=== PATIENT | female | born 1990 | race African-American/Black ===

== ENCOUNTER → 2016-08-21 | Outpatient (CLI) | payer OTHER ==
[~2016-08-21] MED LIST: FERR325T; KEFL500C; MOTR200T4
[2016-08-21 11:42] LABS: BASO % 0.3 % (0.0-1.0); EOS # 0.2 K/mm3 (0.0-0.50); EOS % 2.4 % (0.0-3.0); LARGE UNSTAINED CELL # 0.2 K/mm3 (0.0-0.4); LARGE UNSTAINED CELL % 2.2 % (0.0-4.0); LYMPH # 1.3 K/mm3 (1.5-6.5); LYMPH % 13.5 % (24.0-44.0); MEAN CORPUSCULAR HGB CONC 32.8 g/dl (32.0-36.5); MEAN CORPUSCULAR VOLUME 88.4 fl (80.0-96.0); MONO # 0.3 K/mm3 (0.0-0.8); MONO % 3.2 % (0.0-5.0); NEUTROPHILS # 7.3 K/mm3 (1.8-7.7); NEUTROPHILS % 78.3 % (36.0-66.0); PLATELET COUNT, AUTOMATED 256 k/mm3 (150-450); WHITE BLOOD COUNT 9.4 K/mm3 (4.0-10.0)
== END ==
LOC: M LAB 10:04
PROVIDERS: ATTEND Obstetrics & Gynecology
DX: Z36 Encounter for antenatal screening of mother (principal)

== ENCOUNTER → 2016-08-24 | Outpatient (CLI) | payer OTHER ==
--- NOTE | 2016-08-25 03:28 | REP ---
Clinical: Anatomical evaluation. Comparison: 07/21/2016 . Findings: Examination demonstrates a single live intrauterine in breech presentation. motion is identified by technologist. Placenta is noted posterior fundally and grade zero without evidence for placenta previa or abruption. Amniotic fluid volume is normal. Cervix measures 4.5 cm in length and appears closed. No evidence for nuchal cord. Gestational age by LMP 25 weeks 0-day with TUYET 12/07/2016 . Gestational age by current measurements 25 weeks 3-day with TUYET 12/04/2016 . FHR equals 136 beats per minute. BPD 6.3 cm 25 weeks 4 days HC 24.3 cm 26 weeks 3 day AC 22.2 cm 26 weeks 5 days FL 4.4 cm 24 weeks 2 days HL 4.0 cm 24 weeks 2 days HC/AC ratio 1.09 Estimated weight 845 grams ( 64 percentile). Anatomical assessment demonstrates normal structures including cranium, choroid plexus, cavum, cerebellum/posterior fossa, facial features, lungs, four-chamber heart/ventricular outflow tracts, diaphragm, stomach, cord insertion/three-vessel cord, kidneys/bladder, and extremities. Limited evaluation of the sacral spine is due to positioning, and the remainder of the spinal images appear normal. Echogenic focus within the left cardiac ventricle consistent with chordae tendineae. Impression: Single live intrauterine in breech presentation demonstrating appropriate interval growth. Signed by Eloy Evans MD 08/25/2016 03:20 A
== END ==
LOC: M RAD 15:24
PROVIDERS: ATTEND Advanced Practice Midwife
DX: Z36 Encounter for antenatal screening of mother (principal); Z3A.25 25 weeks gestation of pregnancy

== ENCOUNTER 2016-09-04 18:02 | Outpatient (CLI) | payer OTHER ==
[~2016-09-04] VITALS: Ht 160 cm; Wt 56.0 kg
[2016-09-04] MEDS ORDERED: PRENTAB9 PO (18:32)
[2016-09-04] MEDS ORDERED: RANITAB PO (18:32)
== END 2016-09-04 20:40 | disposition home or self-care (01) ==
LOC: M LDO 18:02
PROVIDERS: ATTEND Obstetrics & Gynecology
DX: O26.892 Other specified pregnancy related conditions, second trimester (principal); R05 Cough; R10.10 Upper abdominal pain, unspecified; Z3A.26 26 weeks gestation of pregnancy

== ENCOUNTER 2016-10-04 19:18 | Inpatient (IN) | payer OTHER ==
[2016-10-04] VITALS (13 sets, daily range): BP systolic 110–143; BP diastolic 58–80
[~2016-10-04] VITALS: Ht 160 cm; Wt 61.0 kg
[~2016-10-04 19:18] MED LIST changes: +PRENTAB9 PO; +RANITAB PO
[2016-10-04] MEDS ORDERED: FERR325T3 PO (19:25)
[2016-10-04] MEDS ORDERED: MAG Sulf (OBGYN) 20GM/500ML 20,000 MG in APPROPRIATE DILUENT 1 EA IV SCH (20:18)
[2016-10-04] MEDS: LR 1,000 ML IV SCH (20:24)
[2016-10-04] MEDS ORDERED: MAG Sulf (L&D) 4 GM/100 ML 4 GM in APPROPRIATE DILUENT 1 EA IV ONE (20:30)
[2016-10-04] MEDS ORDERED: AZITHROMYCIN 250 MG TAB PO ONE (20:30)
[2016-10-04 20:56] LABS: MEAN CORPUSCULAR HEMOGLOBIN 29.4 pg (27.0-33.0); MEAN CORPUSCULAR HGB CONC 33.9 g/dl (32.0-36.5); MEAN CORPUSCULAR VOLUME 86.7 fl (80.0-96.0); RED CELL DISTRIBUTION WIDTH 13.7 % (11.5-14.5); WHITE BLOOD COUNT 11.8 K/mm3 (4.0-10.0)
[2016-10-04] MEDS: BETAMETHASONE SOLUSPAN 6MG/ML INJ 5ML (J0702) IM SCH (20:56)
[2016-10-04] MEDS: AMPICILLIN SOD 2 GM in D5W MINI-BAG PLUS 100 ML IV SCH (20:57)
[2016-10-05] VITALS (24 sets, daily range): BP systolic 100–131; BP diastolic 55–74
[2016-10-05] MEDS: AMPICILLIN SOD 2 GM in D5W MINI-BAG PLUS 100 ML IV SCH ×4 (02:45→20:48)
[2016-10-05] MEDS: LR 1,000 ML IV SCH (08:43)
[2016-10-05] MEDS: BETAMETHASONE SOLUSPAN 6MG/ML INJ 5ML (J0702) IM SCH (20:48)
[2016-10-06] MEDS: AMPICILLIN SOD 2 GM in D5W MINI-BAG PLUS 100 ML IV SCH ×4 (02:59→20:55)
[2016-10-06 03:06] VITALS: BP 105/54
[2016-10-06 08:00] VITALS: BP 113/56
[2016-10-06 12:00] VITALS: BP 110/61
[2016-10-06 15:00] VITALS: BP 110/59
[2016-10-06 18:08] VITALS: BP 115/62
[2016-10-06 22:00] VITALS: BP 114/56
[2016-10-07] MEDS: AMPICILLIN SOD 2 GM in D5W MINI-BAG PLUS 100 ML IV SCH ×4 (02:01→20:47)
[2016-10-07 02:08] VITALS: BP 104/52
[2016-10-07 06:24] VITALS: BP 108/59
[2016-10-07 10:00] VITALS: BP 119/69
[2016-10-07] MEDS: DOCUSATE SODIUM 100 MG CAP PO SCH ×2 (11:08→20:46)
[2016-10-07 14:03] VITALS: BP 114/57
[2016-10-07 18:00] VITALS: BP 117/59
[2016-10-07 22:00] VITALS: BP 111/63
[2016-10-08] MEDS: AMPICILLIN SOD 2 GM in D5W MINI-BAG PLUS 100 ML IV SCH ×4 (01:57→20:30)
[2016-10-08 02:00] VITALS: BP 97/49
[2016-10-08 05:52] VITALS: BP 106/57
[2016-10-08] MEDS: DOCUSATE SODIUM 100 MG CAP PO SCH ×2 (08:44→21:00)
[2016-10-08 10:00] VITALS: BP 123/69
[2016-10-08 13:48] VITALS: BP 115/58
[2016-10-08 18:17] VITALS: BP 127/66
[2016-10-08 22:00] VITALS: BP 128/59
[2016-10-09 02:34] VITALS: BP 116/58
[2016-10-09] MEDS: AMPICILLIN SOD 2 GM in D5W MINI-BAG PLUS 100 ML IV SCH (02:40)
[2016-10-09 05:38] VITALS: BP 100/55
[2016-10-09] MEDS: DOCUSATE SODIUM 100 MG CAP PO SCH ×2 (09:00→20:41)
[2016-10-09] MEDS: PRENATAL VITAMIN TAB PO SCH (09:30)
[2016-10-09] MEDS: AMOXICILLIN 500 MG CAP PO SCH ×2 (09:30→17:20)
[2016-10-09] MEDS ORDERED: SIMETHICONE 80 MG CHEW TAB PO PRN (09:45)
[2016-10-09 10:32] VITALS: BP 111/63
[2016-10-09] MEDS: PANTOPRAZOLE 20 MG TAB PO SCH (10:48)
[2016-10-09 14:00] VITALS: BP 106/55
[2016-10-09 18:11] VITALS: BP 121/68
[2016-10-09 21:44] VITALS: BP 116/73
[2016-10-10] MEDS: AMOXICILLIN 500 MG CAP PO SCH ×3 (01:33→17:14)
[2016-10-10 01:35] VITALS: BP 105/56
[2016-10-10 05:25] VITALS: BP 106/55
[2016-10-10] MEDS: PANTOPRAZOLE 20 MG TAB PO SCH (08:33)
[2016-10-10] MEDS: PRENATAL VITAMIN TAB PO SCH (08:33)
[2016-10-10] MEDS: DOCUSATE SODIUM 100 MG CAP PO SCH ×2 (09:00→21:00)
[2016-10-10 10:00] VITALS: BP_SYST 121; BP_SYST 122; BP_DIAS 66; BP_DIAS 69
--- NOTE | 2016-10-10 12:17 | IPNPDOC ---
Obstetrical Progress Note Date of Service The patient was seen on 10/10/16 at 08:43. Progress Note SUBJECTIVE: Patient reports she is leaking clear fluid. Reports active movement. Denies contractions. Denies any symptoms of infection. OBJECTIVE: NST reactive at 0200. FHR 120, moderate variability, positive accelerations, no decelerations. No contractions noted. PHYSICAL EXAMINATION: Abdomen: Gravid, fundal height 30 cm External extremities: no edema, sequentials present bilaterally Skin: warm and dry. No rashes or lesions present. VITAL SIGNS: Please see below. Labs: Positive GBS. ASSESSMENT: IUP @ 31.4, PPROM, Category I FHR tracing PLAN: Continue PO latency antibiotics for 1 more day. She is day 6 of latency antibiotics. Continue observation. Plan on delivery at 34 weeks gestation. Start GBS prophylaxis as soon as labor pursues. TUYET 12/07/16. VS, I&O, 24H, Fishbone Vital Signs/I&O Vital Signs Date Time Temp Pulse Resp B/P Pulse Ox O2 Delivery O2 Flow Rate FiO2 10/10/16 05:25 97.9 93 16 106/55 99 Room Air Laboratory Data Microbiology Microbiology 10/05/16 Group B Streptococcus Screen (FELICITA) - Final, Complete Strep Agalactiae Group B CHIQUITA MANRIQUE CNM Oct 10, 2016 08:57
[2016-10-10 14:06] VITALS: BP 120/63
[2016-10-10 18:28] VITALS: BP 129/64
[2016-10-10 22:33] VITALS: BP 123/57
[2016-10-11] MEDS: AMOXICILLIN 500 MG CAP PO SCH ×3 (01:51→17:01)
[2016-10-11 01:59] VITALS: BP 105/62
[2016-10-11 06:03] VITALS: BP 104/54
[2016-10-11] MEDS: PRENATAL VITAMIN TAB PO SCH (08:26)
[2016-10-11] MEDS: PANTOPRAZOLE 20 MG TAB PO SCH (08:26)
[2016-10-11] MEDS: DOCUSATE SODIUM 100 MG CAP PO SCH ×2 (09:00→21:00)
[2016-10-11 10:00] VITALS: BP 123/59
--- NOTE | 2016-10-11 12:44 | IPNPDOC ---
Obstetrical Progress Note Date of Service The patient was seen on 10/11/16 at 12:35. Progress Note SUBJECTIVE: Patient reports that she is slightly nauseous today. Denies contractions or vaginal bleeding. Reports active movement and leaking of clear fluid. Voiding without difficulty. TUYET 12/07/16. OBJECTIVE: PHYSICAL EXAMINATION: VITAL SIGNS: Please see below. Abdomen: Soft, nontender to palpation. EXTREMITIES: Bilateral lower legs and feet with no edema. ASSESSMENT: IUP at 31 weeks 5 days gestation, PPROM, +GBS, Category I FHR tracing. PLAN: Continue plan of care with NSTs every 8 hours. Patient instructed to let staff know if she starts laya, leaking fluid that is no longer clear, having other labor s/sx, having decreased movements. Will start GBS prophylaxis if/when labor starts. Patient may use wheelchair today to ride in around hospital with to get out of her room. Patient to finish Day 7 of latency antibiotics. VS, I&O, 24H, Fishbone Vital Signs/I&O Vital Signs Date Time Temp Pulse Resp B/P Pulse Ox O2 Delivery O2 Flow Rate FiO2 10/11/16 10:00 97.1 83 16 123/59 10/10/16 05:25 99 Room Air Laboratory Data Microbiology Microbiology 10/05/16 Group B Streptococcus Screen (FELICITA) - Final, Complete Strep Agalactiae Group B CHIQUITA MANRIQUE CNM Oct 11, 2016 12:44
[2016-10-11 15:09] VITALS: BP 124/65
[2016-10-11 18:15] VITALS: BP 113/67
[2016-10-11 22:09] VITALS: BP 124/70
[2016-10-12] VITALS (7 sets, daily range): BP systolic 107–127; BP diastolic 53–68
[2016-10-12] MEDS: AMOXICILLIN 500 MG CAP PO SCH (01:11)
--- NOTE | 2016-10-12 08:01 | IPNPDOC ---
Obstetrical Progress Note Date of Service The patient was seen on 10/12/16 at 07:56. Progress Note SUBJECTIVE: Patient doing well with no complaints. Reports fluid was clear. Reports active movement. Denies having contractions. OBJECTIVE: heart rate unless NST is 120, moderate variability, positive accelerations, no decelerations. Contractions: One noted. VITAL SIGNS: Please see below. CURRENT LABS: Please see below. ASSESSMENT: IUP at 31 weeks 6 days gestation, PPROM PLAN: Continue until 34 weeks gestation. Latency antibiotics finished last night. Patient is to report if she is feeling any contractions, her fluid changes in color, if she feels febrile, vaginal bleeding, or decreased movement. GBS prophylactic antibiotics will be started patient spontaneously starts laboring. Continue NSTs as ordered. Continue with the use of sequential' s while in bed. VS, I&O, 24H, Fishbone Vital Signs/I&O Vital Signs Date Time Temp Pulse Resp B/P Pulse Ox O2 Delivery O2 Flow Rate FiO2 10/12/16 05:49 97.6 95 19 107/58 10/10/16 05:25 99 Room Air Laboratory Data Microbiology Microbiology 10/05/16 Group B Streptococcus Screen (FELICITA) - Final, Complete Strep Agalactiae Group B CHIQUITA MANRIQUE CNM Oct 12, 2016 08:01
[2016-10-12] MEDS: PANTOPRAZOLE 20 MG TAB PO SCH (10:22)
[2016-10-12] MEDS: DOCUSATE SODIUM 100 MG CAP PO SCH ×3 (10:22→21:00)
[2016-10-12] MEDS: PRENATAL VITAMIN TAB PO SCH (10:22)
[2016-10-13 02:28] VITALS: BP 111/59
[2016-10-13 06:25] VITALS: BP 107/67
[2016-10-13] MEDS: DOCUSATE SODIUM 100 MG CAP PO SCH ×2 (09:00→20:57)
[2016-10-13] MEDS: PRENATAL VITAMIN TAB PO SCH (09:38)
[2016-10-13] MEDS: PANTOPRAZOLE 20 MG TAB PO SCH (09:39)
[2016-10-13 09:56] LABS: BASO % 0.4 % (0.0-1.0); EOS # 0.4 K/mm3 (0.0-0.50); EOS % 3.1 % (0.0-3.0); LARGE UNSTAINED CELL # 0.2 K/mm3 (0.0-0.4); LARGE UNSTAINED CELL % 1.4 % (0.0-4.0); LYMPH # 2.4 K/mm3 (1.5-6.5); LYMPH % 17.9 % (24.0-44.0); MEAN CORPUSCULAR HEMOGLOBIN 29.1 pg (27.0-33.0); MEAN CORPUSCULAR HGB CONC 33.7 g/dl (32.0-36.5); MEAN CORPUSCULAR VOLUME 86.4 fl (80.0-96.0); MONO # 0.7 K/mm3 (0.0-0.8); MONO % 5.8 % (0.0-5.0); NEUTROPHILS # 8.8 K/mm3 (1.8-7.7); NEUTROPHILS % 71.5 % (36.0-66.0); PLATELET COUNT, AUTOMATED 265 k/mm3 (150-450); RED CELL DISTRIBUTION WIDTH 13.3 % (11.5-14.5); WHITE BLOOD COUNT 12.3 K/mm3 (4.0-10.0)
[2016-10-13 10:00] VITALS: BP 115/59
--- NOTE | 2016-10-13 10:36 | REP ---
FOLLOW-UP OB ULTRASOUND: 10/13/2016. Comparison: OB ultrasound 08/24/2016. Clinical history: Supervision of third trimester. Evaluate LUKAS, EFW and position. Findings: There is a single intrauterine gestation in vertex position. The skull shadows the cervix which cannot be precisely measured. There is a posterior grade 1 placenta without previa or abruption. The amniotic fluid volume is visually normal. Amniotic fluid index is 5.5 cm with a normal range 8.6 - 24.2. Only two pockets of fluid are seen at 2.8 and 2.7 cm. Subjectively fluid is low. The mid cord umbilical artery Doppler shows S/D ratio 2.57 with a forward diastolic flow and resistive index 0.61. biometry : BPD 8.3 cm = 33 weeks 1 day HC 30.1 cm = 33 weeks 3 days AC 28.1 cm = 32 weeks 1 day FL 5.8 cm = 30 weeks 4 days HL 5.4 cm = 31 weeks 1 day This gives average ultrasound age 32 weeks 1 day with EDC 12/07/2016. By initial ultrasound she has an EDC of 12/06/2016. Estimated weight 1857 grams or 4 pounds 1 ounce, 39th percentile. Anatomy screen was neither requested or performed. Visualized structures include the cranial vault, choroid plexus, cavum septum pellucidum, and cerebellum. The lungs, diaphragm, left-sided stomach bubble, three-vessel cord, kidneys and bladder are also seen without gross abnormality. Impression: 1. Single intrauterine gestation in vertex position with cervix obscured by shadowing from the skull. There is a posterior grade 1 placenta without previa or abruption. 2. Amniotic fluid visually low and oligohydramnios by LUKAS measurement 5.5 cm with normal range 8.6 - 24.2.3. Heart rate 126 and regular. 3. Cord Doppler with S/D ratio 2.57 and normal forward diastolic flow. Doppler tracing shows an S/D ratio lower than typical for this stage of with that she has a normal range of 3.27 - 4.63. 4. No visible anomalies in the few structures identified. Signed by Meet Lord MD 10/13/2016 05:12 P
[2016-10-13 14:00] VITALS: BP 117/63
[2016-10-13 18:00] VITALS: BP 120/64
[2016-10-13 22:05] VITALS: BP 117/70
[2016-10-14 06:01] VITALS: BP 112/61
[2016-10-14] MEDS: PRENATAL VITAMIN TAB PO SCH (08:40)
[2016-10-14] MEDS: PANTOPRAZOLE 20 MG TAB PO SCH (08:40)
[2016-10-14] MEDS: DOCUSATE SODIUM 100 MG CAP PO SCH ×2 (08:40→21:00)
--- NOTE | 2016-10-14 09:42 | IPNPDOC ---
Obstetrical Progress Note Date of Service The patient was seen on 10/14/16 at 09:34. Progress Note SUBJECTIVE: NO COMPLAINTS. REPORTS OCCASSIONAL CONTRACTIONS. REPORTS A MODERATE AMOUNT OF CLEAR FLUID LEAKING STILL. OBJECTIVE: FHR: 120, moderate variability, positive accelerations, negative decelerations. Contractions: none noted. Abdomen: gravid, soft. Bilateral extremities: none. VITAL SIGNS: Please see below. ASSESSMENT: IUP at 33 wks 1 day gestation, PPROM, positive GBS PLAN: Continue supportive nursing care. Patient to let staff know if she is feeling contractions, she has decreased movements, vaginal bleeding, or changes in fluid color. She is post beta injections. If labor starts we will start GBS prophylaxis. Continue bilateral sequentials. VS, I&O, 24H, Fishbone Vital Signs/I&O Vital Signs Date Time Temp Pulse Resp B/P Pulse Ox O2 Delivery O2 Flow Rate FiO2 10/14/16 06:01 98.2 77 16 112/61 Room Air 10/12/16 19:36 99 I&O- Last 24 Hours up to 6 AM 10/14/16 06:00 Intake Total 1440 ml Balance 1440 ml Laboratory Data 24H LABS Laboratory Tests 2 10/13/16 09:47: White Blood Count 12.3H, Red Blood Count 3.84L, Hemoglobin 11.2L, Hematocrit 33.2L, Mean Corpuscular Volume 86.4, Mean Corpuscular Hemoglobin 29.1, Mean Corpuscular Hemoglobin Concent 33.7, Red Cell Distribution Width 13.3, Platelet Count 265, Neutrophils (%) (Auto) 71.5H, Lymphocytes (%) (Auto) 17.9L, Monocytes (%) (Auto) 5.8H, Eosinophils (%) (Auto) 3.1H, Basophils (%) (Auto) 0.4 , Neutrophils # (Auto) 8.8H, Lymphocytes # (Auto) 2.4, Monocytes # (Auto) 0.7, Eosinophils # (Auto) 0.4, Basophils # (Auto) 0.0, Large Unclassified Cells # 0.2 , Large Unclassified Cells % 1.4 CBC/BMP Laboratory Tests 10/13/16 09:47 Red Blood Count 3.84 L, Mean Corpuscular Volume 86.4, Mean Corpuscular Hemoglobin 29.1, Mean Corpuscular Hemoglobin Concent 33.7, Red Cell Distribution Width 13.3, Neutrophils (%) (Auto) 71.5 H, Lymphocytes (%) (Auto) 17.9 L, Monocytes (%) (Auto) 5.8 H, Eosinophils (%) (Auto) 3.1 H, Basophils (%) (Auto) 0.4, Neutrophils # (Auto) 8.8 H, Lymphocytes # (Auto) 2.4, Monocytes # ( Auto) 0.7, Eosinophils # (Auto) 0.4, Basophils # (Auto) 0.0 Microbiology Microbiology 10/05/16 Group B Streptococcus Screen (FELICITA) - Final, Complete Strep Agalactiae Group B CHIQUITA MANRIQUE Oct 14, 2016 09:42
[2016-10-14 10:00] VITALS: BP 109/59
[2016-10-14 18:11] VITALS: BP 110/63
[2016-10-14 22:00] VITALS: BP 103/55
[2016-10-15 06:02] VITALS: BP 102/55
[2016-10-15] MEDS: PRENATAL VITAMIN TAB PO SCH (08:20)
[2016-10-15] MEDS: DOCUSATE SODIUM 100 MG CAP PO SCH ×2 (08:20→20:10)
[2016-10-15] MEDS: PANTOPRAZOLE 20 MG TAB PO SCH (08:20)
[2016-10-15 10:00] VITALS: BP 110/61
[2016-10-15 14:03] VITALS: BP 118/21
--- NOTE | 2016-10-15 17:05 | IPNPDOC ---
Obstetrical Progress Note Date of Service The patient was seen on 10/15/16 at 16:54. Progress Note SUBJECTIVE: Patient has no complaints. She still reports that her amniotic fluid is clear. Currently denies any contractions. OBJECTIVE: heart rate baseline 125, moderate variability, positive accelerations positive no decelerations. Contractions: Occasional. PHYSICAL EXAMINATION: VITAL SIGNS: Please see below. CARDIOVASCULAR: Regular rate and rhythm, no murmur, rubs or gallops. LUNGS: Clear to auscultation. EXTREMITIES: Bilateral lower extremities, no edema, no erythema. Sequential Compression Devices on bilateral lower extremities. CURRENT LABS: Please see below. ASSESSMENT: 32 weeks 3 days gestation, PPROM, positive GBS PLAN: CBC ordered due to elevation in temperature. Growth and LUKAS ultrasound ordered for tomorrow morning. Betamethasone complete. GBS prophylaxis done with latency antibiotics. Will start GBS prophylaxis and patient spontaneously starts labor. Plan of care collaborated with Dr. Mcintosh. VS, I&O, 24H, Fishbone Vital Signs/I&O Vital Signs Date Time Temp Pulse Resp B/P Pulse Ox O2 Delivery O2 Flow Rate FiO2 10/15/16 14:03 99.2 81 18 118/21 10/14/16 06:01 Room Air 10/12/16 19:36 99 Laboratory Data Microbiology Microbiology 10/05/16 Group B Streptococcus Screen (FELICITA) - Final, Complete Strep Agalactiae Group B CHIQUITA MANRIQUE CNM Oct 15, 2016 16:58
[2016-10-15 17:11] LABS: MEAN CORPUSCULAR HEMOGLOBIN 27.8 pg (27.0-33.0); MEAN CORPUSCULAR HGB CONC 32.4 g/dl (32.0-36.5); MEAN CORPUSCULAR VOLUME 85.7 fl (80.0-96.0); WHITE BLOOD COUNT 12.2 K/mm3 (4.0-10.0)
[2016-10-15 18:09] VITALS: BP 115/69
[2016-10-15 22:02] VITALS: BP 116/68
[2016-10-15 22:59] VITALS: BP 116/68
[2016-10-16 06:07] VITALS: BP 113/63
[2016-10-16] MEDS: DOCUSATE SODIUM 100 MG CAP PO SCH ×2 (08:51→21:00)
[2016-10-16] MEDS: PRENATAL VITAMIN TAB PO SCH (08:51)
[2016-10-16] MEDS: PANTOPRAZOLE 20 MG TAB PO SCH (08:51)
[2016-10-16 11:10] VITALS: BP 140/79
[2016-10-16 14:04] VITALS: BP 120/70
--- NOTE | 2016-10-16 14:13 | REP ---
Obstetric sonography: History: For a amniotic fluid index. Premature rupture of membranes. Findings: Scanning through the gravid uterus demonstrates a viable single intrauterine gestation in a cephalic lie. heart rate is recorded at 131 beats per minute. A posterior placenta is seen without evidence of previa. Amniotic fluid appears subjectively low normal. LUKAS is 7.5 cm (8.4 to 24.4 cm). SD ratio umbilical cord artery by Doppler is normal at 2.65. diaphragm, left-sided stomach, kidneys and bladder, and spine are seen today. Complete anatomic survey is not performed. Impression: Oligohydramnios. Signed by Edmundo Augustine MD 10/16/2016 02:03 P
[2016-10-16 18:20] VITALS: BP 103/50
[2016-10-16 22:00] VITALS: BP 112/61
[2016-10-17 06:00] VITALS: BP 114/62
[2016-10-17] MEDS: DOCUSATE SODIUM 100 MG CAP PO SCH ×2 (09:00→21:00)
[2016-10-17] MEDS: PANTOPRAZOLE 20 MG TAB PO SCH (09:40)
[2016-10-17] MEDS: PRENATAL VITAMIN TAB PO SCH (09:40)
[2016-10-17 14:00] VITALS: BP 106/53
[2016-10-17 21:31] VITALS: BP 122/76
[2016-10-18 05:23] VITALS: BP 119/56
[2016-10-18] MEDS: DOCUSATE SODIUM 100 MG CAP PO SCH ×2 (08:03→20:18)
[2016-10-18] MEDS: PANTOPRAZOLE 20 MG TAB PO SCH (08:06)
[2016-10-18] MEDS: PRENATAL VITAMIN TAB PO SCH (08:06)
[2016-10-18 14:00] VITALS: BP 120/64
[2016-10-18 21:47] VITALS: BP 114/58
[2016-10-19 05:22] VITALS: BP 112/61
[2016-10-19] MEDS: DOCUSATE SODIUM 100 MG CAP PO SCH (07:33)
[2016-10-19] MEDS: PANTOPRAZOLE 20 MG TAB PO SCH (07:33)
[2016-10-19] MEDS: PRENATAL VITAMIN TAB PO SCH (07:33)
--- NOTE | 2016-10-19 10:45 | REP ---
OB ULTRASOUND, BIOPHYSICAL PROFILE: Real-time sonographic evaluation of gravid uterus performed and demonstrates a single living intrauterine gestation, estimated gestational age 32 weeks 0 days. EDC 12/07/2016. heart rate 132 beats per minute. Amniotic fluid within normal limits, amniotic fluid index (LUKAS) 11.0 within normal range of 8.3 - 24.5. Biophysical profile score 8 out of 8. S/d ratio 2.58 within normal range of 2.0 - 3.0. Resistive index 0.61 within normal range of 0.59 - 0.75. position vertex. Placenta posterior and fundal and grade 1 with no previa or abruption. IMPRESSION: Biophysical profile score 8 out of 8. Normal amniotic fluid index (LUKAS). Signed by Alex Felix MD 10/19/2016 12:58 P
--- NOTE | 2016-10-19 12:54 | DS.PDOC ---
Discharge Summary General Date of Admission Oct 04, 2016 at 20:12 Date of Discharge 10/19/2016 Primary Care Physician: CHIQUITA MANRIQUE CNM Attending Physician: Saqib Mcintosh DO [facility] Discharge Summary ADMITTING DIAGNOSES: 1. 26-year-old at 30 weeks 6 days gestation. 2. PPROM on 10/04/2016 at 1630. 3. Unknown GBS DISCHARGE DIAGNOSES: 1. IUP at 33 weeks gestation. 2. PPROM. 3. GBS positive. COMPLICATIONS/CHIEF COMPLAINT: PPROM. HISTORY OF PRESENT ILLNESS: Patient is a 26-year-old female who is a at 30 weeks 6 days gestation who presented to labor and delivery on 10/04/2016 with complaints of leaking of fluid. She reports leaking clear fluid at 1630. She initiated care in her first trimester at [facility]. Patient has had a prior delivery at 34 weeks gestation and was receiving weekly Anastasia injections. Patient did miss the last 2 doses of Anastasia prior to rupturing of membranes. Patient's was also complicated by chlamydia and the beginning, which was treated, and a test of cure is negative. Upon determination that she was ruptured, magnesium sulfate was started for neuro protection and tocolysis, GBS culture was obtained, GBS prophylaxis started with latency antibiotics, and the patient received 2 doses of corticosteroids. Patient has had nonstress tests every 8 hours that have been category 1. Patient has also had serial CBCs and ultrasounds, both showing mom and baby to be in stable condition. Patient's BPP ultrasound today showed an LUKAS of 11. DISCHARGE MEDICATIONS: See below. ALLERGIES: Please see below. VITAL SIGNS: Please see below. LABORATORY DATA: Please see below. ACTIVITY: Modified bed rest. DIET: Regular. DISCHARGE PLAN: Patient can be discharged home. DISCHARGE INSTRUCTIONS: 1. Patient be discharged to home on modified bed rest. Reviewed definition of modified bed rest with patient.. 2. She is to follow up 2-3 times a week in the office for nonstress test and OB appointments. Patient is to be seen Wednesday10/21/2016. 3. Patient is to call with any signs or symptoms of changes in fluid, vaginal bleeding, decreased movement, contractions that become regular, and/or fever. DISCHARGE CONDITION: Stable. Vital Signs/I&Os Vital Signs Date Time Temp Pulse Resp B/P Pulse Ox O2 Delivery O2 Flow Rate FiO2 10/19/16 05:22 98.2 92 16 112/61 10/18/16 21:47 99 Room Air Laboratory Data Labs 24H NAME: WINSTON PACK DATE OF : 1990 AGE: 26 SEX: F REPORT #: [id number] ROOM: M OBS TECHNOLOGIST: CHRISTIAN DOCTOR: CANDE Aj DO Ordered for Date&Time: 10/19/16 0700 cc: [~ rep ct ivnm] Service Date&Time: 10/19/16 0919 EXAMINATION REQUESTED: BPP W/O NON STRESS TEST REASON FOR PATIENT VISIT: PPROM REASON FOR EXAM/COMMENT: Decel, BPP and LUKAS OB ULTRASOUND, BIOPHYSICAL PROFILE: Real-time sonographic evaluation of gravid uterus performed and demonstrates a single living intrauterine gestation, estimated gestational age 32 weeks 0 days. EDC 12/07/2016. heart rate 132 beats per minute. Amniotic fluid within normal limits, amniotic fluid index (LUKAS) 11.0 within normal range of 8.3 - 24.5. Biophysical profile score 8 out of 8. S/d ratio 2.58 within normal range of 2.0 - 3.0. Resistive index 0.61 within normal range of 0.59 - 0.75. position vertex. Placenta posterior and fundal and grade 1 with no previa or abruption. IMPRESSION: Biophysical profile score 8 out of 8. Normal amniotic fluid index (LUKAS). CBC/BMP Item Value Date Time Hemoglobin 10.4 g/dl L 10/15/16 170 Hematocrit 32.0 % L 10/15/16 1703 White Blood Count 12.2 K/mm3 H 10/15/16 1703 Platelet Count 252 k/mm3 10/15/16 1703 Discharge Medications Scheduled Ferrous Sulfate (Ferrous Sulfate) 325 Mg Tab 325 MG PO DAILY (Reported) Multivitamins/ ( 27-0.8 mg) 1 Tab Tab 1 TAB PO DAILY (Reported ) Ranitidine HCl (Ranitidine Acid Vice President Compliance) 75 Mg Tab 2 TAB PO BID (Reported) Allergies Coded Allergies: Acetaminophen (Verified Allergy, Mild, FACIAL SWELLING, 10/07/16) Hydrocodone (Verified Allergy, Mild, FACIAL SWELLING, 10/07/16) CHIQUITA MANRIQUE CNM Oct 19, 2016 12:23
[2016-10-19] MEDS ORDERED: COLA100C PO (14:22)
== END 2016-10-19 16:15 | disposition home or self-care (01) | DRG 566 ==
LOC: M LDO 19:18 → M LDI 20:12 → M OBS 10-06 06:36
PROVIDERS: ADMIT Obstetrics & Gynecology; ATTEND Obstetrics & Gynecology
DX: O42.013 Preterm premature rupture of membranes, onset of labor within 24 hours of rupture, third trimester (principal); Z3A.30 30 weeks gestation of pregnancy; O99.820 Streptococcus B carrier state complicating pregnancy

== ENCOUNTER 2016-11-05 21:32 | Inpatient (IN) | payer OTHER ==
[2016-11-05] VITALS (7 sets, daily range): BP systolic 117–134; BP diastolic 62–85
[~2016-11-05] VITALS: Ht 160 cm; Wt 62.0 kg
[~2016-11-05 21:32] MED LIST changes: +COLA100C3 PO; +FERR325T3 PO
[2016-11-05] MEDS ORDERED: LACTATED RINGER'S 1000 ML IV STA (21:49)
[2016-11-05] MEDS ORDERED: PENICILLIN G POTASSIUM IV 5 MU in D5W MINI-BAG PLUS 100 ML IV STA (21:49)
[2016-11-05] MEDS ORDERED: LR 1,000 ML IV SCH (21:49)
[2016-11-05 22:30] LABS: MEAN CORPUSCULAR HEMOGLOBIN 29.8 pg (27.0-33.0); MEAN CORPUSCULAR HGB CONC 33.8 g/dl (32.0-36.5); MEAN CORPUSCULAR VOLUME 88.1 fl (80.0-96.0); RED CELL DISTRIBUTION WIDTH 14.4 % (11.5-14.5); WHITE BLOOD COUNT 10.2 K/mm3 (4.0-10.0)
[2016-11-05] MEDS ORDERED: FENTANYL 2MCG/ML ROPIVACAINE 0.2% IN 0.9% NACL 200ML IVBAG As Ordered ONE (22:42)
--- NOTE | 2016-11-05 22:51 | HPEPDOC ---
Obstetrical History & Physical General Date of Admission Nov 05, 2016 at 21:50 Primary Care Physician: Saqib Mcintosh DO History of Present Illness Patient is a 26-year-old female who is a who is 35 weeks 3 days gestation with an TUYET of 12/07/2016 based off of her LMP and consistent with her first trimester ultrasound. Patient initiated care in her first trimester at [facility]. Her has been complicated by a history of delivery at 34 weeks gestation in 2008. Patient started Breann injections weekly around 20 weeks gestation. She did miss one dose of Breann due to traveling. This has been complicated by her PPROM at 30 weeks 6 days gestation on 10/04/2016. Patient presents to labor and delivery at that time with spontaneous rupture of membranes. She was clear fluid at the time. She was admitted as inpatient for 2 weeks and was followed as outpatient 3 times a week after a continued increase in amniotic fluid volume for an OB visit, NST, and a weakly BPP. She presents to labor and delivery today with complaints of contractions. Her contractions started at 4 PM and started become regular and more painful around 8:30 PM. She's continued to leak clear fluid. She denies fever. She reports active movement. Denies vaginal bleeding. Chief Complaint: Contractions, pre-term, Group B Positive, Rupture of membranes Information Provided By: Patient Age: 26 : 2 Term: 0 Pre-term: 1 Abortions: 0 Livin Care Care: Good Care Number of Visits: 12 Dating Final EDC: December 07, 2016 Final EDC by: LMP LMP: Mar 02, 2016 EGA at Admission: 35.3 Antepartum Course Diagnos(e)s PPROM at 30 weeks 6 days gestation Positive GBS Height (inches): 53 Pre- weight (lbs.): 111 Admission Weight (lbs.): 138 Change in Weight (lbs.): 27 Past Medical History Past Obstetrical History : Past Obstetrical History: Multigravida Gestation: 34 (12/2008) Type of Delivery: Spontaneous Vaginal Del. Sex of : Male (weighting 5 lbs 4 oz.) Complications: Yes (Went into spontaneous labor) SERVICE ADVISOR History: History of STD (+ chlamydia in with negative PIERO) Past Medical History Medical History NONE Surgical History: Other (right sided shoulder surgery) Family History Significant Family History: Cancer (MGM with breast cancer ), Diabetes (DM II: MGM) Social History Social history Patient's highest grade of education completed is 12th grade. Patient is single but with father of the baby who is the father of her other child. Marital Status: Single Family situation: Spouse/partner home Psychosocial History: No pertinent psych hx * Smoker: former Smoker Alcohol: Denies Drugs: denies Abuse Violence Screening Have you been hit/kicked/slapp: No Have you been sexually assault: No Allergies Coded Allergies: Acetaminophen (Verified Allergy, Mild, FACIAL SWELLING, 10/07/16) Hydrocodone (Verified Allergy, Mild, FACIAL SWELLING, 10/07/16) Medications Scheduled Ferrous Sulfate (Ferrous Sulfate) 325 Mg Tab 325 MG PO DAILY Multivitamins/ ( 27-0.8 mg) 1 Tab Tab 1 TAB PO DAILY Ranitidine HCl (Ranitidine Acid Molasses And Caramel Operator) 75 Mg Tab 2 TAB PO BID Scheduled PRN Docusate Sodium (Colace) 100 Mg Cap 100 MG PO BID PRN PRN CONSTIPATION Physical Examination Physical Examination GENERAL: Alert and oriented times three. BREAST: . ABDOMEN: Gravid and non-tender to touch. FETUS: Is vertex (VTX) by sterile vaginal examination (SVE), fetus is vertex ( VTX) by Kenneth. HEART RATE: Regular rate and rhythm. LUNGS: Clear to auscultation (CTA). EXTREMITIES: No edema. No clonus. Deep tendon reflexes (DTRs) + 2. Vital Signs/I&O Vital Signs Date Time Temp Pulse Resp B/P Pulse Ox O2 Delivery O2 Flow Rate FiO2 11/05/16 21:46 98.8 Laboratory Data CBC/BMP Item Value Date Time White Blood Count 10.2 K/mm3 H 11/05/162214 Red Blood Count 3.93 M/mm3 L 11/05/162214 Hemoglobin 11.7 g/dl L 11/05/162214 Hematocrit 34.6 % L 11/05/162214 Platelet Count 203 k/mm3 11/05/162214 Urine Culture: No Growth Pertinent Laboratoy Data Blood Type: A+ RBC Antibody Screen: Negative HIV: Negative Hepatitis B: Negative Hepatitis C: Unknown Rapid Plasma Reagin: Nonreactive Rubella: Nonreactive Chlamydia/Gonorrhea: Negative Group B Streptococcus: Positive Quad Screen Test: Declined Glucose Tolerance Test: 107 Other Ultrasounds 10/23/16: IUP at 33 weeks 4 days gestation with an LUKAS of 10.1 and a BPP of 8 out of 8. 10/30/2016: IUP at 34 weeks 4 days with an LUKAS of 10.85. Position is vertex. BPP 8 out of 8. Steroid Therapy Steroid Therapy: Yes Date #1: Oct 04, 2016 Date #2: Oct 05, 2016 Reason PPROM Vaginal Examination Dilation: 5 cm Effacement: Other (100%) Station: 0 Presentation: Cephalic presentation Position: Vertex (occiput) Assessment Heart Rate (FHR): 120 Variability: Moderate Accelerations: Positive Decelerations: None Tocometer Contractions: Yes Frequency: regular, every 2-5 min. Strength: palpated as strong Multi-drug resistant Organism: No history of MDRO Assessment/Plan Assessment IUP at 35 weeks 3 days gestation Active labor Spontaneous rupture of membranes at 30 weeks 6 days gestation GBS positive Category 1 heart rate tracing Plan Patient admitted to labor and delivery. IV and labs per order. GBS prophylaxis started. Patient desires epidural. Clear liquid diet. Out of bed ad herber. Neonatology (Dr. Brown) notified of patient being in the department. Parent aware that will go to NICU for care. Anticipate cervical change and spontaneous vaginal delivery. CHIQUITA MANRIQUE CNM Nov 05, 2016 22:26
[2016-11-05] MEDS ORDERED: OXYTOCIN 30 UNITS IN 0.9% NaCl 500ML IV BAG (J2590) As Ordered ONE (23:22)
[2016-11-06] VITALS (9 sets, daily range): BP systolic 103–129; BP diastolic 59–70
[2016-11-06 00:12] LABS: CORD GAS HCO3 V 23.2 MEQ/L; CORD GAS O2 SAT V 85.2 %; CORD GAS PCO2 V 41.2 mmHg; CORD GAS PH V 7.369 UNITS; CORD GAS PO2 V 39.6 mmHg; CORD GAS SBC V 22.6 MEQ/L; CORD GAS TCO2 V 24.5 MEQ/L
[2016-11-06 00:15] LABS: CORD GAS ABE A -6.9; CORD GAS O2 SAT A 39.7 %; CORD GAS PH A 7.224 UNITS; CORD GAS PO2 A 18.2 mmHg; CORD GAS SBC A 17.7 MEQ/L; CORD GAS TCO2 A 22.6 MEQ/L
[2016-11-06] MEDS ORDERED: OXYTOCIN DRIP 30 UNITS in APPROPRIATE DILUENT 1 EA IV SCH (00:21)
[2016-11-06] MEDS ORDERED: RHOGAM 300 MCG (1500 IU) INJ (J2790) IM SCH (00:30)
[2016-11-06] MEDS ORDERED: DIBUCAINE 1% OINTMENT 30GM TOP PRN (00:30)
[2016-11-06] MEDS ORDERED: DOCUSATE SODIUM 100 MG CAP PO PRN (00:30)
[2016-11-06] MEDS ORDERED: MEASLES,MUMPS,RUBELLA VACCINE INJ (MMR-II) (90707) SC SCH (00:30)
[2016-11-06] MEDS ORDERED: ANUSOL HC CREAM 30GM TOP PRN (00:30)
[2016-11-06] MEDS ORDERED: METHYLERGONOVINE MALEATE 0.2 MG TAB PO PRN (00:30)
--- NOTE | 2016-11-06 00:32 | DNPDOC ---
[facility] Delivery Note Delivery Note DATE OF DELIVERY: Nov 05, 2016 at 2329. PREDELIVERY DIAGNOSIS: IUP at 35-3/7 weeks' gestation, PPROM at 30 weeks 6/7 days gestation, active labor, positive GBS. PROVIDER: Chiquita Navarrete CNM ANESTHESIA: Epidural. ESTIMATED BLOOD LOSS: 350 mL. FINDINGS: 6 pound 5 ounce male infant, Score 8/9, no nuchal cord. DELIVERY SUMMARY: Paul is a 26-year-old female now G 2 P 0202 at 35 weeks 3 weeks' gestation who presented to labor and delivery in active labor. She received an epidural for pain management. She progressed to fully dilated at 2320. Patient pushed to a spontaneous vaginal delivery at 2329 to a living male in the RUDY position with restitution to LOT. Shoulders delivered with ease and the corpus immediately followed. Baby placed on maternal abdomen active and crying with stimulation. Cord clamped 2 and cut by patient's aunt. Cord gases obtained and cord blood obtained. Spontaneous delivery of intact placenta with a three- vessel cord by Lopez mechanism at to 2339. Uterine hemostasis achieved by rapid infusion of IV Pitocin and uterine fundal massage. Placenta sent to pathology along with cord. Perineum and vagina inspected and found to have right labial laceration that was not repaired and left labial abrasions. EBL a 350. 's 8/9. Weight 6 lbs. 5 oz, 2860 g. Mom elected breast- feeding. Baby is going to NICU due to gestational age. Parents undecided on 's name and mother and baby are stable at this time. CHIQUITA NAVARRETE CNM Nov 06, 2016 00:20
[2016-11-06] MEDS ORDERED: PENICILLIN G POTASSIUM IV 2.5 MU in D5W 100 ML IV SCH (02:15)
[2016-11-06] MEDS: PRENATAL VITAMIN TAB PO SCH (08:08)
[2016-11-06] MEDS: IBUPROFEN 800 MG TAB PO PRN ×2 (15:30→22:09)
[2016-11-07 06:22] VITALS: BP 127/74
[2016-11-07] MEDS ORDERED: IBUP-1114 PO (11:20)
[2016-11-07] MEDS: PRENATAL VITAMIN TAB PO SCH (12:32)
== END 2016-11-07 12:45 | disposition home or self-care (01) | DRG 560 ==
LOC: M LDO 21:32 → M LDI 21:50 → M OBS 11-06 01:59 → M NICU 11-06 20:18 → M OBS 11-06 20:27
PROVIDERS: ADMIT Obstetrics & Gynecology; ATTEND Advanced Practice Midwife
PROC: 10E0XZZ Delivery of Products of Conception, External Approach (ICD-10-PCS; principal; 2016-11-05)
DX: O42.013 Preterm premature rupture of membranes, onset of labor within 24 hours of rupture, third trimester (principal); Z3A.35 35 weeks gestation of pregnancy; O99.824 Streptococcus B carrier state complicating childbirth; O70.0 First degree perineal laceration during delivery; Z37.0 Single live birth